=== PATIENT | male | born 2000 | race African-American/Black ===

== ENCOUNTER 2021-10-06 22:21 | Inpatient (IN) | payer BC, SELFPAY ==
[~2021-10-06 22:21] MED LIST: Iopamidol 370 76% 100 ML VIAL ONE
[2021-10-06] MEDS ORDERED: CEFAZOLIN 1 GM VIAL ONE (22:27)
[2021-10-06] MEDS ORDERED: Boostrix 0.5 ML (Tdap) VIAL ONE (22:27)
[2021-10-06 22:35] LABS: Hemoglobin 13.1 g/dL (14.0-18.0); Mean Corpuscular HGB CONC 30.8 g/dL (32.0-36.0); Mean Corpuscular Hemoglobin 29.2 pg (25.0-35.0); Mean Corpuscular Volume 94.9 fL (78.0-98.0); Mean Platelet Volume 8.5 fL (7.4-10.4); Platelet Count 224 thou/uL (130-400); RBC Distribution Width 12.3 % (11.5-14.5); Red Blood Cell (RBC) Count 4.47 mill/uL (4.00-5.20); White Blood Cell (WBC) Count 12.3 thou/uL (4.8-10.8)
[2021-10-06] MEDS ORDERED: Phenylephrine 10 MG/ML VIAL ONE (22:47)
[2021-10-06] MEDS ORDERED: Sodium Bicarb 50 MEQ/50 ML Abboject 8.4% SYRINGE ONE (22:47)
[2021-10-06] MEDS ORDERED: Calcium Chloride 1 GM/10 ML Abboject SYRINGE ONE ×2 (22:47→23:20)
[2021-10-06] MEDS ORDERED: Norepinephrine 4 MG/4 ML VIAL ONE (22:47)
[2021-10-06 22:48] LABS: Band 1 % (5-11); Eosinophils 2 % (0-10); INR-International Normal Ratio 1.4; Lymphocytes 51 % (28-48); MDiff Complete? YES; Monocytes 7 % (0-4); Neutrophil 30 % (31-61); PTT 34.4 sec (22.9-36.1); Platelet Morphology Comment Appears Adequate; Prothrombin Time 17.5 sec (12.0-14.7); RBC Morphology Normal; Reactive Lymphocytes 9 % (0-10)
[2021-10-06 22:54] LABS: ALT (SGPT) 24 U/L (8-55); AST (SGOT) 29 U/L (5-34); Albumin 3.8 g/dL (3.5-5.0); Alkaline Phosphatase 51 U/L (50-130); BUN (Urea Nitrogen) 13 mg/dL (8.9-20.6); Bilirubin, Total 0.4 mg/dL (0.2-1.2); Calc. Creatinine Clearance 0 mL/min (70-130); Calcium 8.9 mg/dL (7.8-10.44); Chloride 103 mmol/L (98-107); Globulin 2.9 g/dL (2.4-3.5); Glucose 216 mg/dL (70-105); Protein, Total 6.7 g/dL (6.0-8.3); Sodium 140 mmol/L (136-145)
[2021-10-06] MEDS ORDERED: Piperacillin/Tazobactam 3.375 GM VIAL ONE (23:04)
[2021-10-06 23:06] LABS: Carbon Dioxide Less than 8 mmol/L (22-29)
[2021-10-06] MEDS ORDERED: Fentanyl 100 MCG/2 ML VIAL ONE (23:18)
[2021-10-06] MEDS ORDERED: HYDROmorphone 0.5 MG/0.5 ML SYRINGE ONE (23:18)
[2021-10-06] MEDS ORDERED: PROPOFOL 200 MG/20 ML VIAL ONE (23:20)
[2021-10-06] MEDS ORDERED: Ondansetron PF 4 MG/2 ML Vial ONE (23:20)
[2021-10-06] MEDS ORDERED: Dexamethasone 20 MG/5 ML VIAL ONE (23:20)
[2021-10-06] MEDS ORDERED: PHENYLEPHRINE-NS 100 MCG/ML 10 ML SYRINGE ONE (23:20)
[2021-10-06] MEDS ORDERED: Rocuronium Bromide 10 MG/ML (10ML VIAL) ONE (23:20)
[2021-10-06] MEDS ORDERED: Glycopyrrolate 0.2 MG/ML 5 ML SYRINGE ONE (23:20)
[2021-10-06] MEDS ORDERED: Succinylcholine 200 MG/10 ml SYRINGE FS ONE (23:20)
[2021-10-06] MEDS ORDERED: Lidocaine 1% PF 5 ML VIAL ONE (23:20)
[2021-10-06 23:21] LABS: Alcohol 135 mg/dL (Less than 10); Magnesium 2.3 mg/dL (1.7-2.2); Phosphorus 4.8 mg/dL (2.3-4.7)
[2021-10-06 23:57] LABS: SARS-CoV-2 NAA Rapid Test Not Detected (NotDetected)
[2021-10-07] MEDS ORDERED: Zolpidem Tartrate 5 MG TAB PO PRN (00:57)
[2021-10-07] MEDS ORDERED: Promethazine HCl 25 MG/ML VIAL IVPB PRN (00:57)
[2021-10-07] MEDS ORDERED: PACU-Morphine 4MG/ML VIAL SLOW IVP PRN (00:57)
[2021-10-07] MEDS ORDERED: Naloxone HCl 0.4 mg/ml Vial IV PRN (00:57)
[2021-10-07] MEDS ORDERED: Ondansetron HCl/PF 4 MG/2 ML Vial IVP PRN (00:57)
[2021-10-07] MEDS ORDERED: HYDROmorphone 10 mg/100 ml CADD IVPB PRN (00:57)
[2021-10-07] MEDS ORDERED: diphenhydrAMINE 50 MG/ML VIAL IM PRN (00:57)
[2021-10-07] MEDS ORDERED: diphenhydrAMINE 25 MG CAP PO PRN (00:57)
[2021-10-07] MEDS ORDERED: diphenhydrAMINE 50 MG/ML VIAL IVP PRN (00:57)
[2021-10-07] MEDS ORDERED: Ondansetron PF 4 MG/2 ML Vial IVP PRN (00:57)
[2021-10-07] MEDS ORDERED: Promethazine HCl 25 MG/ML VIAL IM PRN ×2 (00:57)
[2021-10-07] MEDS ORDERED: HYDROmorphone 2 MG/ML VIAL SLOW IVP PRN (00:57)
[2021-10-07] MEDS ORDERED: Dextrose 50% Abboject 50 ML SYRINGE SLOW IVP PRN (00:58)
[2021-10-07] MEDS ORDERED: Morphine 4 MG/ML VIAL SLOW IVP PRN ×2 (00:58→19:41)
[2021-10-07] MEDS ORDERED: Dextrose 5% in Water 1,000 ML IV PRN (00:58)
[2021-10-07] MEDS ORDERED: hydrALAZINE 20 MG/ML VIAL SLOW IVP PRN (00:58)
[2021-10-07] MEDS ORDERED: Morphine 2 MG/ML VIAL SLOW IVP PRN (00:58)
[2021-10-07] MEDS ORDERED: Sodium Chloride 0.9% 1,000 ML IV SCH (01:00)
[2021-10-07] MEDS ORDERED: Communication Order-Pharmacy FS SCH (01:00)
[2021-10-07 01:47] LABS: Hemoglobin 14.5 g/dL (14.0-18.0); Mean Corpuscular HGB CONC 32.9 g/dL (32.0-36.0); Mean Corpuscular Hemoglobin 29.8 pg (25.0-35.0); Mean Corpuscular Volume 90.6 fL (78.0-98.0); Mean Platelet Volume 8.3 fL (7.4-10.4); Platelet Count 187 thou/uL (130-400); RBC Distribution Width 13.3 % (11.5-14.5); Red Blood Cell (RBC) Count 4.84 mill/uL (4.00-5.20); White Blood Cell (WBC) Count 27.5 thou/uL (4.8-10.8)
[2021-10-07 02:01] LABS: Band 10 % (5-11); Eosinophils 1 % (0-10); Lymphocytes 11 % (28-48); MDiff Complete? YES; Monocytes 13 % (0-4); Neutrophil 65 % (31-61); Platelet Morphology Comment Appears Adequate; RBC Morphology Normal
[2021-10-07 02:08] LABS: Anion Gap 16 mmol/L (10-20); BUN (Urea Nitrogen) 11 mg/dL (8.9-20.6); Calc. Creatinine Clearance 117 mL/min (70-130); Calcium 8.3 mg/dL (7.8-10.44); Carbon Dioxide 19 mmol/L (22-29); Chloride 108 mmol/L (98-107); Glucose 173 mg/dL (70-105); Magnesium 2.3 mg/dL (1.7-2.2); Phosphorus 2.5 mg/dL (2.3-4.7); Potassium 3.7 mmol/L (3.5-5.1); Sodium 139 mmol/L (136-145)
[2021-10-07 02:10] LABS: Lactic Acid 7.9 mmol/L (0.5-2.2)
[2021-10-07] MEDS: Potassium Chloride 20 MEQ in Lactated Ringer's 1,000 ML IV SCH ×4 (02:32→21:44)
[2021-10-07] MEDS ORDERED: Potassium Phosphate 15 MMOL in Sodium Chloride 0.9% 250 ML 250 ML IVPB SCH (03:00)
[2021-10-07] MEDS: Piperacillin/Tazobactam 3.375 GM in Sodium Chloride 0.9% 100 ML IVPB SCH ×3 (03:05→20:47)
[2021-10-07 03:09] LABS: Bacteria/HPF 1+ HPF (None Seen); Bilirubin Negative (Negative); Blood, Urine 3+ (Negative); Clarity Turbid (Clear); Glucose, Urine (Dipstick) 50 mg/dL (Negative); Ketone, Urine Negative (Negative); Leukocyte Negative Leu/uL (Negative); Nitrite Negative (Negative); Protein, Urine (Dipstick) Negative (Neg-Trace); RBC/HPF Greater than 50 HPF (0-3); Specific Gravity, Urine 1.022 (1.002-1.036); Squamous Epithelial None Seen HPF (0-3); Urobilinogen Normal mg/dL (Less than 2); WBC/HPF 21-50 HPF (0-3)
[2021-10-07 03:59] LABS: Amphetamine Not Detected (NotDetected); Barbiturates Screen Not Detected (NotDetected); Benzodiazepine Screen Not Detected (NotDetected); Cocaine Metabolite Screen Not Detected (NotDetected); Methadone Not Detected (NotDetected); Methamphetamine Not Detected (NotDetected); Opiate Screen Detected (NotDetected); Oxycodone Screen Not Detected (NotDetected); Phencyclidine (PCP) Not Detected (NotDetected); THC/Cannabinoid Screen Detected (NotDetected); Tricyclic Screen Not Detected (NotDetected)
[2021-10-07] MEDS: Famotidine/PF 20 mg/2ml Vial SLOW IVP SCH ×2 (08:16→20:50)
[2021-10-07 08:46] LABS: Lactic Acid 3.9 mmol/L (0.5-2.2)
[2021-10-07] MEDS ORDERED: Ondansetron PF 4 MG/2 ML Vial IVP SCH (09:15)
[2021-10-07] MEDS: traMADol HCl 50 MG TAB PO SCH ×3 (09:26→21:01)
[2021-10-07] MEDS: Scopolamine 1.5 mg/72 hour Patch TD SCH (09:27)
[2021-10-07] MEDS: Cyclobenzaprine 10 MG TAB PO PRN (11:41)
[2021-10-07] MEDS: cloNIDine 0.2 MG TAB PO SCH ×2 (11:41→17:32)
[2021-10-07] MEDS: Ketorolac Tromethamine 30 MG/ML VIAL IVP SCH ×2 (11:41→17:34)
[2021-10-07] MEDS: Acetaminophen 500 MG TAB PO SCH ×2 (11:42→17:32)
[2021-10-07] MEDS: Gabapentin 300 MG CAP PO SCH ×2 (14:58→21:01)
[2021-10-08] MEDS: cloNIDine 0.2 MG TAB PO SCH (00:07)
[2021-10-08] MEDS: Ketorolac Tromethamine 30 MG/ML VIAL IVP SCH ×4 (00:07→18:40)
[2021-10-08] MEDS: Acetaminophen 500 MG TAB PO SCH ×4 (00:08→18:39)
[2021-10-08] MEDS: traMADol HCl 50 MG TAB PO SCH ×4 (04:26→21:43)
[2021-10-08] MEDS: Piperacillin/Tazobactam 3.375 GM in Sodium Chloride 0.9% 100 ML IVPB SCH ×3 (04:27→20:48)
[2021-10-08] MEDS: Potassium Chloride 20 MEQ in Lactated Ringer's 1,000 ML IV SCH (05:49)
[2021-10-08] MEDS: Cyclobenzaprine 10 MG TAB PO PRN (05:52)
[2021-10-08] MEDS ORDERED: cloNIDine 0.2 MG TAB PO SCH (06:00)
[2021-10-08 06:59] LABS: #Lymphocytes 1.6 thou/uL (1.20-3.40); #Monocytes 1.5 thou/uL (0.11-0.59); #Neutrophils 18.4 thou/uL (1.40-6.50); %Eosinophils 0.1 % (0.0-10.0); %Lymphocytes 7.6 % (28.0-48.0); %Neutrophils 85.3 % (31.0-61.0); Hemoglobin 10.2 g/dL (14.0-18.0); Mean Corpuscular Hemoglobin 29.4 pg (25.0-35.0); Mean Platelet Volume 8.5 fL (7.4-10.4); Platelet Count 116 thou/uL (130-400); Red Blood Cell (RBC) Count 3.48 mill/uL (4.00-5.20); White Blood Cell (WBC) Count 21.6 thou/uL (4.8-10.8)
[2021-10-08 07:06] LABS: ALT (SGPT) 17 U/L (8-55); AST (SGOT) 24 U/L (5-34); Albumin 2.9 g/dL (3.5-5.0); Alkaline Phosphatase 29 U/L (50-130); Anion Gap 10 mmol/L (10-20); BUN (Urea Nitrogen) 15 mg/dL (8.9-20.6); Bilirubin, Total 0.8 mg/dL (0.2-1.2); Calc. Creatinine Clearance 109 mL/min (70-130); Calcium 8.3 mg/dL (7.8-10.44); Carbon Dioxide 26 mmol/L (22-29); Chloride 102 mmol/L (98-107); Globulin 2.3 g/dL (2.4-3.5); Glucose 85 mg/dL (70-105); Magnesium 1.6 mg/dL (1.7-2.2); Potassium 4.2 mmol/L (3.5-5.1); Protein, Total 5.2 g/dL (6.0-8.3); Sodium 134 mmol/L (136-145)
[2021-10-08 07:07] LABS: Phosphorus 2.9 mg/dL (2.3-4.7)
[2021-10-08] MEDS: Gabapentin 300 MG CAP PO SCH ×3 (08:22→21:44)
[2021-10-08] MEDS: Famotidine/PF 20 mg/2ml Vial SLOW IVP SCH ×2 (08:24→20:48)
[2021-10-08] MEDS ORDERED: Magnesium Sulfate 3 GM in Sodium Chloride 0.9% 100 ML IVPB SCH (09:00)
[2021-10-08] MEDS: cloNIDine 0.1 MG TAB PO SCH ×2 (14:21→18:39)
[2021-10-08] MEDS: diphenhydrAMINE 50 MG CAP PO PRN (21:46)
[2021-10-09] MEDS: cloNIDine 0.1 MG TAB PO SCH ×3 (00:49→13:25)
[2021-10-09] MEDS: Acetaminophen 500 MG TAB PO SCH ×4 (00:54→18:37)
[2021-10-09] MEDS: Cyclobenzaprine 10 MG TAB PO PRN (00:55)
[2021-10-09] MEDS: Ketorolac Tromethamine 30 MG/ML VIAL IVP SCH ×4 (00:55→18:37)
[2021-10-09] MEDS: traMADol HCl 50 MG TAB PO SCH ×4 (04:27→20:40)
[2021-10-09] MEDS: Piperacillin/Tazobactam 3.375 GM in Sodium Chloride 0.9% 100 ML IVPB SCH ×3 (04:28→20:40)
[2021-10-09] MEDS: Famotidine/PF 20 mg/2ml Vial SLOW IVP SCH ×2 (08:49→20:41)
[2021-10-09] MEDS: Gabapentin 300 MG CAP PO SCH ×3 (08:50→20:41)
[2021-10-09] MEDS ORDERED: Melatonin 3 MG TAB PO PRN (16:56)
[2021-10-09] MEDS: diphenhydrAMINE 50 MG CAP PO PRN (20:41)
[2021-10-10] MEDS: Ketorolac Tromethamine 30 MG/ML VIAL IVP SCH ×2 (00:57→06:10)
[2021-10-10] MEDS: Acetaminophen 500 MG TAB PO SCH ×4 (00:59→17:19)
[2021-10-10] MEDS: Piperacillin/Tazobactam 3.375 GM in Sodium Chloride 0.9% 100 ML IVPB SCH ×2 (03:46→11:43)
[2021-10-10] MEDS: traMADol HCl 50 MG TAB PO SCH ×4 (03:46→21:45)
[2021-10-10 06:54] LABS: Hemoglobin 9.1 g/dL (14.0-18.0); Mean Corpuscular HGB CONC 32.3 g/dL (32.0-36.0); Mean Corpuscular Hemoglobin 29.2 pg (25.0-35.0); Mean Corpuscular Volume 90.4 fL (78.0-98.0); Mean Platelet Volume 8.2 fL (7.4-10.4); Platelet Count 128 thou/uL (130-400); RBC Distribution Width 12.6 % (11.5-14.5); Red Blood Cell (RBC) Count 3.13 mill/uL (4.00-5.20); White Blood Cell (WBC) Count 11.3 thou/uL (4.8-10.8)
[2021-10-10 07:09] LABS: Anion Gap 15 mmol/L (10-20); BUN (Urea Nitrogen) 12 mg/dL (8.9-20.6); Calc. Creatinine Clearance 116 mL/min (70-130); Calcium 8.6 mg/dL (7.8-10.44); Carbon Dioxide 24 mmol/L (22-29); Chloride 101 mmol/L (98-107); Glucose 61 mg/dL (70-105); Magnesium 1.9 mg/dL (1.7-2.2); Phosphorus 3.3 mg/dL (2.3-4.7); Potassium 3.7 mmol/L (3.5-5.1); Sodium 136 mmol/L (136-145)
[2021-10-10 07:11] LABS: Band 5 % (5-11); Lymphocytes 7 % (28-48); MDiff Complete? YES; Monocytes 1 % (0-4); Neutrophil 84 % (31-61); Platelet Morphology Comment Appears Decreased; RBC Morphology Normal; Reactive Lymphocytes 3 % (0-10)
[2021-10-10] MEDS: Scopolamine 1.5 mg/72 hour Patch TD SCH (09:02)
[2021-10-10] MEDS: Gabapentin 300 MG CAP PO SCH ×3 (09:03→21:46)
[2021-10-10] MEDS: Famotidine/PF 20 mg/2ml Vial SLOW IVP SCH ×2 (09:04→21:47)
[2021-10-10] MEDS: Saccharomyces boulardii 250 MG CAP PO SCH (09:04)
[2021-10-10] MEDS: Cyclobenzaprine 10 MG TAB PO PRN ×2 (11:43→18:29)
[2021-10-10] MEDS ORDERED: Polyethylene Glycol 3350 17 GM Packet PO SCH (12:30)
[2021-10-10] MEDS: Ibuprofen 200 MG TAB PO PRN (18:29)
[2021-10-10] MEDS: Senokot S 8.6-50 MG TAB PO SCH (21:45)
[2021-10-11] MEDS: Acetaminophen 500 MG TAB PO SCH ×4 (00:41→17:05)
[2021-10-11] MEDS: traMADol HCl 50 MG TAB PO SCH ×4 (03:09→22:43)
[2021-10-11] MEDS: Gabapentin 300 MG CAP PO SCH ×3 (09:13→22:43)
[2021-10-11] MEDS: Famotidine/PF 20 mg/2ml Vial SLOW IVP SCH ×2 (09:13→22:42)
[2021-10-11] MEDS: Senokot S 8.6-50 MG TAB PO SCH ×2 (09:14→22:43)
[2021-10-11] MEDS: Saccharomyces boulardii 250 MG CAP PO SCH (09:14)
[2021-10-11] MEDS: Polyethylene Glycol 3350 17 GM Packet PO SCH (09:14)
[2021-10-11 10:13] LABS: #Eosinphils 0.2 thou/uL (0.0-0.7); #Monocytes 0.9 thou/uL (0.11-0.59); #Neutrophils 12.1 thou/uL (1.40-6.50); %Basophils 0.2 % (0.0-1.0); %Eosinophils 1.6 % (0.0-10.0); %Lymphocytes 6.9 % (28.0-48.0); %Monocytes 6.1 % (0.0-4.0); %Neutrophils 85.2 % (31.0-61.0); Hemoglobin 9.4 g/dL (14.0-18.0); Mean Corpuscular HGB CONC 31.4 g/dL (32.0-36.0); Mean Corpuscular Hemoglobin 28.3 pg (25.0-35.0); Mean Corpuscular Volume 90.1 fL (78.0-98.0); Mean Platelet Volume 7.1 fL (7.4-10.4); Platelet Count 183 thou/uL (130-400); RBC Distribution Width 12.4 % (11.5-14.5); Red Blood Cell (RBC) Count 3.31 mill/uL (4.00-5.20); White Blood Cell (WBC) Count 14.2 thou/uL (4.8-10.8)
[2021-10-11 11:42] VITALS: BMI 23.7
[2021-10-11] MEDS: Cyclobenzaprine 10 MG TAB PO PRN (17:06)
[2021-10-11] MEDS: Ibuprofen 200 MG TAB PO PRN (17:06)
[2021-10-12] MEDS: diphenhydrAMINE 50 MG CAP PO PRN (00:23)
[2021-10-12] MEDS: Acetaminophen 500 MG TAB PO SCH ×2 (00:23→06:41)
[2021-10-12] MEDS: Senokot S 8.6-50 MG TAB PO SCH ×2 (00:27→08:31)
[2021-10-12] MEDS: traMADol HCl 50 MG TAB PO SCH ×2 (03:29→08:31)
[2021-10-12 06:43] LABS: #Basophils 0.1 thou/uL (0.0-0.2); #Eosinphils 0.4 thou/uL (0.0-0.7); #Monocytes 1.3 thou/uL (0.11-0.59); #Neutrophils 10.8 thou/uL (1.40-6.50); %Basophils 0.5 % (0.0-1.0); %Eosinophils 2.9 % (0.0-10.0); %Lymphocytes 7.5 % (28.0-48.0); %Monocytes 9.5 % (0.0-4.0); %Neutrophils 79.6 % (31.0-61.0); Hemoglobin 9.4 g/dL (14.0-18.0); Mean Corpuscular HGB CONC 33.6 g/dL (32.0-36.0); Mean Corpuscular Hemoglobin 29.9 pg (25.0-35.0); Mean Corpuscular Volume 89.2 fL (78.0-98.0); Mean Platelet Volume 6.9 fL (7.4-10.4); Platelet Count 191 thou/uL (130-400); RBC Distribution Width 12.5 % (11.5-14.5); Red Blood Cell (RBC) Count 3.15 mill/uL (4.00-5.20); White Blood Cell (WBC) Count 13.6 thou/uL (4.8-10.8)
[2021-10-12] MEDS: Cyclobenzaprine 10 MG TAB PO PRN (06:44)
[2021-10-12 07:04] LABS: Anion Gap 15 mmol/L (10-20); BUN (Urea Nitrogen) 11 mg/dL (8.9-20.6); Calc. Creatinine Clearance 134 mL/min (70-130); Calcium 9.1 mg/dL (7.8-10.44); Carbon Dioxide 24 mmol/L (22-29); Chloride 100 mmol/L (98-107); Magnesium 1.8 mg/dL (1.7-2.2); Phosphorus 3.6 mg/dL (2.3-4.7); Sodium 135 mmol/L (136-145)
[2021-10-12 07:12] LABS: Glucose 54 mg/dL (70-105)
[2021-10-12] MEDS: Ibuprofen 200 MG TAB PO PRN (08:32)
[2021-10-12] MEDS: Gabapentin 300 MG CAP PO SCH (08:32)
[2021-10-12] MEDS: Saccharomyces boulardii 250 MG CAP PO SCH (08:33)
[2021-10-12] MEDS: Famotidine/PF 20 mg/2ml Vial SLOW IVP SCH (08:33)
[2021-10-12] MEDS: Polyethylene Glycol 3350 17 GM Packet PO SCH (08:33)
[2021-10-12 12:20] VITALS: TEMP 98.4
[2021-10-12 12:21] VITALS: BP 126/89
[2021-10-15 11:43] LABS: Actual Bicarbonate (HCO3a) 18.4 mEq/L (22-28); Analyzer IN Cardio OR; Base Excess (BEa) -6.1 mEq/L (-2.0 to +3.0); CO2 Tension 33.1 mmHg (35.0-45.0); Calcium, Ionized (arterial) 1.29 mmol/L (1.12-1.30); Carboxyhemoglobin (COHb) 0.2 gm% (0.0-3.0); Hemoglobin (Hb) 11.5 g/dL (11.4-15.4); Potassium - ABG Lab 3.82 mmol/L (3.70-5.30); pH, Arterial 7.36 (7.35-7.45)
[2021-10-15 11:44] LABS: Puncture Site Arterial Line
== END 2021-10-12 14:32 | disposition home or self-care (01) | DRG 981 ==
LOC: ERS 22:21 → SDC/OP 23:15 → CCU 23:59 → EEVIPCON 23:59 → SURG A 10-07 16:41
PROVIDERS: ADMIT Specialist; ATTEND Specialist
PROC: 0DQM0ZZ Repair Descending Colon, Open Approach (ICD-10-PCS; principal; 2021-10-07)
PROC: 0W9J0ZZ Drainage of Pelvic Cavity, Open Approach (ICD-10-PCS; 2021-10-07)
PROC: 30233N1 Transfusion of Nonautologous Red Blood Cells into Peripheral Vein, Percutaneous Approach (ICD-10-PCS; 2021-10-07)
DX: S36.532A Laceration of descending [left] colon, initial encounter (principal); T79.4XXA Traumatic shock, initial encounter; S37.032A Laceration of left kidney, unspecified degree, initial encounter; E87.2 Acidosis; N17.9 Acute kidney failure, unspecified; D62 Acute posthemorrhagic anemia; K62.5 Hemorrhage of anus and rectum; Z20.822 Contact with and (suspected) exposure to COVID-19; S31.119A Laceration without foreign body of abdominal wall, unspecified quadrant without penetration into peritoneal cavity, initial encounter; F10.129 Alcohol abuse with intoxication, unspecified; W26.9XXA Contact with unspecified sharp object(s), initial encounter; S31.821A Laceration without foreign body of left buttock, initial encounter; E87.6 Hypokalemia; R31.9 Hematuria, unspecified; Z88.2 Allergy status to sulfonamides
CPT/HCPCS: 36415; 36416; 36430; 71045; 71260; 74177; 80048; 80053; 80306; 80307; 81003; 81015; 83605; 83735; 84100; 85007; 85025; 85027; 85610; 85730; 86850; 86900; 86901; 90471; 90715; 94640; 96374; 96375; C1776; G0390; J0690; J1100; J1170; J1885; J2270; J2370; J2405; J2543; J2704; J3010; J3475; J3480; J3490; J7050; J7120; J7620; P9016; Q9967; S0028; U0002

== ENCOUNTER 2021-10-13 03:37 | Inpatient (IN) | payer BC ==
[2021-10-13] MEDS ORDERED: Ondansetron PF 4 MG/2 ML Vial ONE (04:29)
[2021-10-13] MEDS ORDERED: Morphine 4 MG/ML VIAL ONE (04:29)
[2021-10-13 04:35] LABS: Bilirubin Negative (Negative); Blood, Urine Moderate (Negative); Glucose, Urine (Dipstick) Negative (Negative); Ketone, Urine 40 mg/dL (Negative); Leukocyte Negative (Negative); Nitrite Negative (Negative); Protein, Urine (Dipstick) > or equal to 300 mg/dL (Neg-Trace); Specific Gravity, Urine 1.025 (1.005-1.030); Urobilinogen 0.2 mg/dL (Less than 2)
[2021-10-13 04:35] LABS: #Eosinphils 0.4 thou/uL (0.0-0.7); #Lymphocytes 1.8 thou/uL (1.20-3.40); #Monocytes 1.4 thou/uL (0.11-0.59); #Neutrophils 8.8 thou/uL (1.40-6.50); %Basophils 0.3 % (0.0-1.0); %Eosinophils 3.2 % (0.0-10.0); %Lymphocytes 14.1 % (28.0-48.0); %Monocytes 11.5 % (0.0-4.0); %Neutrophils 70.9 % (31.0-61.0); Hemoglobin 10.2 g/dL (14.0-18.0); Mean Corpuscular HGB CONC 33.8 g/dL (32.0-36.0); Mean Corpuscular Hemoglobin 29.9 pg (25.0-35.0); Mean Corpuscular Volume 88.4 fL (78.0-98.0); Mean Platelet Volume 6.9 fL (7.4-10.4); Platelet Count 249 thou/uL (130-400); RBC Distribution Width 12.7 % (11.5-14.5); White Blood Cell (WBC) Count 12.4 thou/uL (4.8-10.8)
[2021-10-13 04:36] LABS: Clarity Bloody (Clear); RBC/HPF Greater than 50 HPF (0-3)
[2021-10-13 04:37] LABS: WBC/HPF 0-3 HPF (0-3)
[2021-10-13] MEDS ORDERED: Ondansetron PF 4 MG/2 ML Vial IVP PRN ×2 (04:37→14:37)
[2021-10-13] MEDS ORDERED: traMADol HCl 50 MG TAB PO PRN (04:41)
[2021-10-13] MEDS ORDERED: Sodium Chloride 0.9% 1,000 ML IV SCH (04:45)
[2021-10-13 04:53] LABS: ALT (SGPT) 36 U/L (8-55); AST (SGOT) 45 U/L (5-34); Albumin 3.6 g/dL (3.5-5.0); Alkaline Phosphatase 50 U/L (50-130); Anion Gap 15 mmol/L (10-20); BUN (Urea Nitrogen) 10 mg/dL (8.9-20.6); Bilirubin, Total 0.6 mg/dL (0.2-1.2); Calc. Creatinine Clearance 0 mL/min (70-130); Calcium 9.3 mg/dL (7.8-10.44); Carbon Dioxide 25 mmol/L (22-29); Chloride 99 mmol/L (98-107); Globulin 3.7 g/dL (2.4-3.5); Glucose 87 mg/dL (70-105); Potassium 3.5 mmol/L (3.5-5.1); Protein, Total 7.3 g/dL (6.0-8.3); Sodium 135 mmol/L (136-145)
[2021-10-13 04:58] LABS: INR-International Normal Ratio 1.1; PTT 38.4 sec (22.9-36.1)
[2021-10-13 05:45] LABS: Magnesium 1.8 mg/dL (1.7-2.2); Phosphorus 3.5 mg/dL (2.3-4.7)
[2021-10-13] MEDS ORDERED: Acetaminophen 325 MG Suppository ONE (10:09)
[2021-10-13] MEDS ORDERED: Acetaminophen 325 MG TAB ONE (10:09)
[2021-10-13] MEDS: Acetaminophen 325 MG TAB PO SCH ×3 (11:00→17:48)
[2021-10-13] MEDS: Gabapentin 300 MG CAP PO SCH ×2 (11:00→14:49)
[2021-10-13] MEDS ORDERED: Acetaminophen/Codeine 30-300mg Tablet PO PRN ×2 (14:35)
[2021-10-13] MEDS: Cyclobenzaprine 10 MG TAB PO PRN (14:49)
[2021-10-13 16:19] LABS: Anion Gap 17 mmol/L (10-20); BUN (Urea Nitrogen) 10 mg/dL (8.9-20.6); Calc. Creatinine Clearance 0 mL/min (70-130); Calcium 9.1 mg/dL (7.8-10.44); Carbon Dioxide 22 mmol/L (22-29); Chloride 100 mmol/L (98-107); Glucose 62 mg/dL (70-105); Magnesium 1.7 mg/dL (1.7-2.2); Potassium 3.8 mmol/L (3.5-5.1); Sodium 135 mmol/L (136-145)
[2021-10-13 16:26] LABS: Phosphorus 3.2 mg/dL (2.3-4.7)
[2021-10-13] MEDS ORDERED: Morphine 4 MG/ML VIAL SLOW IVP PRN (17:16)
[2021-10-13] MEDS: Sodium Chloride 0.9% 1,000 ML IV SCH (17:34)
[2021-10-13] MEDS: Acetaminophen/Codeine 30-300mg Tablet PO SCH (17:43)
[2021-10-13] MEDS ORDERED: Acetaminophen 500 MG TAB PO SCH (18:00)
[2021-10-13] MEDS ORDERED: B & O 30 MG SUPP PR PRN (19:26)
[2021-10-13] MEDS ORDERED: ceFAZolin 2 GM/Dextrose 50 ML 2 GM in Premix Bag 1 BAG IVPB SCH (19:30)
[2021-10-13] MEDS ORDERED: Iothalamate Meglumine 60% 50 ML VIAL FS ONE ×3 (20:07→21:12)
[2021-10-13 20:14] LABS: Hemoglobin 8.9 g/dL (14.0-18.0)
[2021-10-13] MEDS ORDERED: Fentanyl 250 MCG/5 ML VIAL ONE (20:15)
[2021-10-13] MEDS ORDERED: Rocuronium Bromide 10 MG/ML (10ML VIAL) ONE (20:32)
[2021-10-13] MEDS ORDERED: Lidocaine 1% PF 5 ML VIAL ONE (20:32)
[2021-10-13] MEDS ORDERED: Succinylcholine 200 MG/10 ml SYRINGE FS ONE (20:32)
[2021-10-13] MEDS ORDERED: PROPOFOL 200 MG/20 ML VIAL ONE (20:32)
[2021-10-13] MEDS ORDERED: PHENYLEPHRINE-NS 100 MCG/ML 10 ML SYRINGE ONE (20:32)
[2021-10-13] MEDS ORDERED: Phenylephrine 10 MG/ML VIAL ONE (22:22)
[2021-10-14] MEDS ORDERED: Fentanyl 100 MCG/2 ML VIAL ONE ×4 (00:19→05:27)
[2021-10-14] MEDS ORDERED: Rocuronium Bromide 50 MG/5 ML VIAL ONE (01:26)
[2021-10-14] MEDS ORDERED: Phenylephrine 10 MG/ML VIAL ONE (01:50)
[2021-10-14] MEDS ORDERED: ceFAZolin 2 GM/Dextrose 50 ML IVPB ONE (02:01)
[2021-10-14] MEDS ORDERED: Ondansetron PF 4 MG/2 ML Vial ONE (02:48)
[2021-10-14] MEDS ORDERED: HYDROmorphone 2 MG/ML VIAL ONE (04:01)
[2021-10-14] MEDS ORDERED: fentaNYL Citrate/PF 2,000 MCG in Sodium Chloride 0.9% 60 ML IV PRN (04:06)
[2021-10-14] MEDS ORDERED: diphenhydrAMINE 50 MG/ML VIAL IVP PRN (04:06)
[2021-10-14] MEDS ORDERED: Promethazine HCl 25 MG/ML VIAL IM PRN ×2 (04:06→04:07)
[2021-10-14] MEDS ORDERED: Ondansetron PF 4 MG/2 ML Vial IVP PRN (04:06)
[2021-10-14] MEDS ORDERED: Naloxone HCl 0.4 mg/ml Vial IV PRN (04:06)
[2021-10-14] MEDS ORDERED: diphenhydrAMINE 50 MG/ML VIAL IM PRN (04:06)
[2021-10-14] MEDS ORDERED: diphenhydrAMINE 25 MG CAP PO PRN (04:06)
[2021-10-14] MEDS ORDERED: Ondansetron HCl/PF 4 MG/2 ML Vial IVP PRN (04:07)
[2021-10-14] MEDS ORDERED: Promethazine HCl 25 MG/ML VIAL IVPB PRN (04:07)
[2021-10-14 04:08] LABS: Band 11 % (5-11); Hemoglobin 6.8 g/dL (14.0-18.0); Lymphocytes 5 % (28-48); MDiff Complete? YES; Mean Corpuscular HGB CONC 33.3 g/dL (32.0-36.0); Mean Corpuscular Hemoglobin 30.3 pg (25.0-35.0); Mean Corpuscular Volume 90.9 fL (78.0-98.0); Mean Platelet Volume 6.8 fL (7.4-10.4); Monocytes 4 % (0-4); Myelocyte 3 % (0-0); Neutrophil 77 % (31-61); Platelet Count 254 thou/uL (130-400); Platelet Morphology Comment Appears Adequate; Polychromasia SLIGHT = 2-3 cells (100X) (0-2/hpf); RBC Distribution Width 12.8 % (11.5-14.5); Red Blood Cell (RBC) Count 2.24 mill/uL (4.00-5.20); Schistocytes SLIGHT = 2-5 cells (100X) (0-1/hpf); White Blood Cell (WBC) Count 16.9 thou/uL (4.8-10.8)
[2021-10-14] MEDS ORDERED: Communication Order-Pharmacy FS SCH (04:15)
[2021-10-14 04:16] LABS: Anion Gap 18 mmol/L (10-20); BUN (Urea Nitrogen) 12 mg/dL (8.9-20.6); Calc. Creatinine Clearance 42 mL/min (70-130); Calcium 7.7 mg/dL (7.8-10.44); Carbon Dioxide 18 mmol/L (22-29); Chloride 105 mmol/L (98-107); Glucose 147 mg/dL (70-105); Magnesium 1.6 mg/dL (1.7-2.2); Phosphorus 5.1 mg/dL (2.3-4.7); Potassium 5.9 mmol/L (3.5-5.1); Sodium 135 mmol/L (136-145)
[2021-10-14] MEDS ORDERED: Oxybutynin 5 MG TAB PO PRN (05:36)
[2021-10-14] MEDS: Ascorbic Acid 500 mg Chewable Tablet PO SCH ×3 (06:04→20:00)
[2021-10-14] MEDS: Gabapentin 300 MG CAP PO SCH ×4 (06:04→19:59)
[2021-10-14] MEDS: Acetaminophen 325 MG TAB PO SCH (06:05)
[2021-10-14] MEDS: Sodium Chloride 0.9% 1,000 ML IV SCH ×4 (06:05→20:01)
[2021-10-14] MEDS ORDERED: Magnesium 2 GM/50 ML 2 GM in Premix Bag 1 BAG IVPB SCH (07:45)
[2021-10-14] MEDS: Ferrous Sulfate 325 MG TAB PO SCH ×2 (09:17→18:29)
[2021-10-14 10:11] LABS: Hemoglobin 7.3 g/dL (14.0-18.0); Platelet Count 245 thou/uL (130-400)
[2021-10-14 10:41] LABS: Anion Gap 13 mmol/L (10-20); BUN (Urea Nitrogen) 12 mg/dL (8.9-20.6); Calc. Creatinine Clearance 40 mL/min (70-130); Calcium 7.9 mg/dL (7.8-10.44); Carbon Dioxide 21 mmol/L (22-29); Chloride 106 mmol/L (98-107); Glucose 124 mg/dL (70-105); Magnesium 1.6 mg/dL (1.7-2.2); Phosphorus 3.1 mg/dL (2.3-4.7); Potassium 4.7 mmol/L (3.5-5.1); Sodium 135 mmol/L (136-145)
[2021-10-14] MEDS: Acetaminophen/Codeine 30-300mg Tablet PO SCH ×2 (10:45→10:46)
[2021-10-14] MEDS ORDERED: Acetaminophen 325 MG TAB PO SCH (12:00)
[2021-10-14] MEDS: Acetaminophen 500 MG TAB PO SCH (18:21)
[2021-10-14 18:41] LABS: Hemoglobin 7.8 g/dL (14.0-18.0); Mean Corpuscular HGB CONC 34.1 g/dL (32.0-36.0); Mean Corpuscular Hemoglobin 30.5 pg (25.0-35.0); Mean Corpuscular Volume 89.7 fL (78.0-98.0); Platelet Count 226 thou/uL (130-400); RBC Distribution Width 12.7 % (11.5-14.5); Red Blood Cell (RBC) Count 2.55 mill/uL (4.00-5.20); White Blood Cell (WBC) Count 16.1 thou/uL (4.8-10.8)
[2021-10-14 18:44] LABS: Band 3 % (5-11); Eosinophils 1 % (0-10); Lymphocytes 10 % (28-48); MDiff Complete? YES; Monocytes 9 % (0-4); Neutrophil 77 % (31-61); Platelet Morphology Comment Appears Adequate; Polychromasia SLIGHT = 2-3 cells (100X) (0-2/hpf)
[2021-10-14] MEDS: Zolpidem Tartrate 5 MG TAB PO PRN (20:00)
[2021-10-14] MEDS ORDERED: Magnesium Sulfate 4 GM in Sodium Chloride 0.9% 250 ML 250 ML IV SCH (20:15)
[2021-10-14] MEDS ORDERED: Sodium Chloride 0.9% 500 ML IV SCH (21:30)
[2021-10-15] MEDS: Acetaminophen 500 MG TAB PO SCH ×2 (00:12→06:10)
[2021-10-15] MEDS: Sodium Chloride 0.9% 1,000 ML IV SCH (06:10)
[2021-10-15 07:16] LABS: Hemoglobin 9.1 g/dL (14.0-18.0); Mean Corpuscular HGB CONC 34.3 g/dL (32.0-36.0); Mean Corpuscular Hemoglobin 30.5 pg (25.0-35.0); Mean Corpuscular Volume 88.8 fL (78.0-98.0); Mean Platelet Volume 6.1 fL (7.4-10.4); Platelet Count 261 thou/uL (130-400); RBC Distribution Width 12.6 % (11.5-14.5); Red Blood Cell (RBC) Count 2.98 mill/uL (4.00-5.20); White Blood Cell (WBC) Count 14.3 thou/uL (4.8-10.8)
[2021-10-15 07:33] LABS: Anion Gap 11 mmol/L (10-20); BUN (Urea Nitrogen) 8 mg/dL (8.9-20.6); Calc. Creatinine Clearance 47 mL/min (70-130); Calcium 7.9 mg/dL (7.8-10.44); Carbon Dioxide 25 mmol/L (22-29); Chloride 104 mmol/L (98-107); Glucose 94 mg/dL (70-105); Magnesium 2.5 mg/dL (1.7-2.2); Phosphorus 2.3 mg/dL (2.3-4.7); Potassium 3.9 mmol/L (3.5-5.1); Sodium 136 mmol/L (136-145)
[2021-10-15] MEDS ORDERED: traMADol HCl 50 MG TAB PO PRN (07:35)
[2021-10-15 07:51] LABS: Band 4 % (5-11); Eosinophils 1 % (0-10); Lymphocytes 9 % (28-48); MDiff Complete? YES; Monocytes 11 % (0-4); Neutrophil 74 % (31-61); Platelet Morphology Comment Appears Adequate; Polychromasia SLIGHT = 2-3 cells (100X) (0-2/hpf); Reactive Lymphocytes 1 % (0-10)
[2021-10-15] MEDS ORDERED: Ferrous Sulfate 325 MG TAB PO SCH (08:00)
[2021-10-15] MEDS: Gabapentin 300 MG CAP PO SCH ×3 (08:49→20:18)
[2021-10-15] MEDS: Ascorbic Acid 500 mg Chewable Tablet PO SCH ×2 (08:49→20:19)
[2021-10-15] MEDS: Ferrous Sulfate 325 MG TAB PO SCH ×2 (08:52→17:23)
[2021-10-15] MEDS ORDERED: Senokot S 8.6-50 MG TAB PO SCH (09:00)
[2021-10-15] MEDS ORDERED: Ascorbic Acid 500 mg Chewable Tablet PO SCH (09:00)
[2021-10-15] MEDS ORDERED: traMADol HCl 50 MG TAB PO SCH (12:00)
[2021-10-15] MEDS ORDERED: cloNIDine 0.2 MG TAB PO SCH (12:00)
[2021-10-15] MEDS: cloNIDine 0.1 MG TAB PO SCH ×3 (12:37→23:28)
[2021-10-15] MEDS: Acetaminophen 325 MG TAB PO SCH ×4 (12:38→23:27)
[2021-10-15] MEDS: Acetaminophen/Codeine 30-300mg Tablet PO SCH ×4 (12:38→23:28)
[2021-10-15 13:26] LABS: #Eosinphils 0.3 thou/uL (0.0-0.7); #Lymphocytes 1.8 thou/uL (1.20-3.40); #Monocytes 2.1 thou/uL (0.11-0.59); #Neutrophils 12.4 thou/uL (1.40-6.50); %Basophils 0.2 % (0.0-1.0); %Eosinophils 1.7 % (0.0-10.0); %Lymphocytes 10.9 % (28.0-48.0); %Monocytes 12.5 % (0.0-4.0); %Neutrophils 74.8 % (31.0-61.0); Hemoglobin 9.4 g/dL (14.0-18.0); Mean Corpuscular HGB CONC 33.7 g/dL (32.0-36.0); Mean Corpuscular Hemoglobin 30.4 pg (25.0-35.0); Mean Platelet Volume 6.3 fL (7.4-10.4); Platelet Count 315 thou/uL (130-400); RBC Distribution Width 12.6 % (11.5-14.5); White Blood Cell (WBC) Count 16.6 thou/uL (4.8-10.8)
[2021-10-15] MEDS: Senokot S 8.6-50 MG TAB PO SCH (20:18)
[2021-10-15] MEDS: Zolpidem Tartrate 5 MG TAB PO PRN (20:19)
[2021-10-16] MEDS: Acetaminophen/Codeine 30-300mg Tablet PO SCH ×3 (05:40→17:41)
[2021-10-16] MEDS: Acetaminophen 325 MG TAB PO SCH ×3 (05:40→17:24)
[2021-10-16] MEDS: cloNIDine 0.1 MG TAB PO SCH ×3 (05:41→17:28)
[2021-10-16 05:49] LABS: #Eosinphils 0.5 thou/uL (0.0-0.7); #Monocytes 1.6 thou/uL (0.11-0.59); #Neutrophils 8.6 thou/uL (1.40-6.50); %Basophils 0.2 % (0.0-1.0); %Eosinophils 3.6 % (0.0-10.0); %Lymphocytes 15.9 % (28.0-48.0); %Monocytes 12.5 % (0.0-4.0); %Neutrophils 67.9 % (31.0-61.0); Hemoglobin 8.9 g/dL (14.0-18.0); Mean Corpuscular HGB CONC 33.3 g/dL (32.0-36.0); Mean Corpuscular Hemoglobin 30.2 pg (25.0-35.0); Mean Corpuscular Volume 90.6 fL (78.0-98.0); Mean Platelet Volume 6.3 fL (7.4-10.4); Platelet Count 319 thou/uL (130-400); RBC Distribution Width 12.6 % (11.5-14.5); Red Blood Cell (RBC) Count 2.93 mill/uL (4.00-5.20); White Blood Cell (WBC) Count 12.7 thou/uL (4.8-10.8)
[2021-10-16 06:17] LABS: Anion Gap 11 mmol/L (10-20); BUN (Urea Nitrogen) 9 mg/dL (8.9-20.6); Calc. Creatinine Clearance 55 mL/min (70-130); Calcium 8.8 mg/dL (7.8-10.44); Carbon Dioxide 29 mmol/L (22-29); Chloride 102 mmol/L (98-107); Glucose 83 mg/dL (70-105); Magnesium 2.2 mg/dL (1.7-2.2); Phosphorus 3.4 mg/dL (2.3-4.7); Potassium 3.7 mmol/L (3.5-5.1); Sodium 138 mmol/L (136-145)
[2021-10-16] MEDS: Ascorbic Acid 500 mg Chewable Tablet PO SCH ×2 (08:37→20:38)
[2021-10-16] MEDS: Ferrous Sulfate 325 MG TAB PO SCH ×2 (08:37→17:25)
[2021-10-16] MEDS: Gabapentin 300 MG CAP PO SCH ×3 (08:38→20:37)
[2021-10-16] MEDS: Senokot S 8.6-50 MG TAB PO SCH ×2 (08:39→20:37)
[2021-10-16] MEDS: Polyethylene Glycol 3350 17 GM Packet PO SCH (08:39)
[2021-10-17] MEDS: Acetaminophen/Codeine 30-300mg Tablet PO SCH ×4 (00:09→17:28)
[2021-10-17] MEDS: cloNIDine 0.1 MG TAB PO SCH ×5 (00:10→23:45)
[2021-10-17] MEDS: Acetaminophen 325 MG TAB PO SCH ×4 (00:10→17:30)
[2021-10-17 05:17] LABS: #Eosinphils 0.4 thou/uL (0.0-0.7); #Monocytes 1.3 thou/uL (0.11-0.59); #Neutrophils 9.3 thou/uL (1.40-6.50); %Basophils 0.2 % (0.0-1.0); %Eosinophils 3.4 % (0.0-10.0); %Lymphocytes 15.2 % (28.0-48.0); %Monocytes 10.2 % (0.0-4.0); %Neutrophils 71.1 % (31.0-61.0); Hemoglobin 8.6 g/dL (14.0-18.0); Mean Corpuscular HGB CONC 33.7 g/dL (32.0-36.0); Mean Corpuscular Hemoglobin 30.5 pg (25.0-35.0); Mean Corpuscular Volume 90.5 fL (78.0-98.0); Mean Platelet Volume 6.3 fL (7.4-10.4); Platelet Count 389 thou/uL (130-400); RBC Distribution Width 12.6 % (11.5-14.5); Red Blood Cell (RBC) Count 2.81 mill/uL (4.00-5.20); White Blood Cell (WBC) Count 13.1 thou/uL (4.8-10.8)
[2021-10-17] MEDS: Ferrous Sulfate 325 MG TAB PO SCH ×2 (08:49→17:29)
[2021-10-17] MEDS: Senokot S 8.6-50 MG TAB PO SCH ×2 (08:49→19:45)
[2021-10-17] MEDS: Cyclobenzaprine 10 MG TAB PO PRN ×2 (08:49→19:44)
[2021-10-17] MEDS: Gabapentin 300 MG CAP PO SCH ×3 (08:50→19:44)
[2021-10-17] MEDS: Ascorbic Acid 500 mg Chewable Tablet PO SCH ×2 (08:50→19:44)
[2021-10-17] MEDS: Polyethylene Glycol 3350 17 GM Packet PO SCH (08:50)
[2021-10-17] MEDS ORDERED: Magnesium Citrate 300 ML BOT PO SCH (12:30)
[2021-10-18] MEDS: Acetaminophen 325 MG TAB PO SCH ×5 (00:16→23:36)
[2021-10-18] MEDS: cloNIDine 0.1 MG TAB PO SCH ×5 (00:17→23:35)
[2021-10-18] MEDS: Acetaminophen/Codeine 30-300mg Tablet PO SCH ×5 (00:17→23:35)
[2021-10-18] MEDS ORDERED: Simethicone Chewable 80 MG TAB PO PRN (01:02)
[2021-10-18 06:28] LABS: Hemoglobin 9.1 g/dL (14.0-18.0)
[2021-10-18] MEDS: Gabapentin 300 MG CAP PO SCH ×3 (08:30→20:37)
[2021-10-18] MEDS: Ascorbic Acid 500 mg Chewable Tablet PO SCH ×2 (08:31→20:38)
[2021-10-18] MEDS: Ferrous Sulfate 325 MG TAB PO SCH ×2 (08:31→18:15)
[2021-10-18] MEDS: Polyethylene Glycol 3350 17 GM Packet PO SCH (11:21)
[2021-10-18] MEDS: Senokot S 8.6-50 MG TAB PO SCH ×2 (11:21→20:37)
[2021-10-18] MEDS ORDERED: Fentanyl 100 MCG/2 ML VIAL SLOW IVP PRN (17:34)
[2021-10-18] MEDS ORDERED: Fentanyl 100 MCG/2 ML VIAL ONE (17:36)
[2021-10-18] MEDS ORDERED: Acetaminophen/Codeine 30-300mg Tablet ONE (18:09)
[2021-10-18] MEDS ORDERED: Acetaminophen 325 MG TAB ONE (18:11)
[2021-10-18] MEDS: Fentanyl 100 MCG/2 ML VIAL SLOW IVP PRN ×2 (20:38→23:05)
[2021-10-19] MEDS: Cyclobenzaprine 10 MG TAB PO PRN ×3 (02:15→14:24)
[2021-10-19] MEDS: Zolpidem Tartrate 5 MG TAB PO PRN (02:15)
[2021-10-19] MEDS: Fentanyl 100 MCG/2 ML VIAL SLOW IVP PRN ×3 (02:15→08:15)
[2021-10-19] MEDS: Acetaminophen/Codeine 30-300mg Tablet PO SCH ×2 (05:38→13:01)
[2021-10-19] MEDS: Acetaminophen 325 MG TAB PO SCH ×2 (05:38→13:03)
[2021-10-19] MEDS: cloNIDine 0.1 MG TAB PO SCH ×4 (05:39→23:16)
[2021-10-19 06:30] LABS: Hemoglobin 9.3 g/dL (14.0-18.0)
[2021-10-19 06:51] LABS: Anion Gap 12 mmol/L (10-20); BUN (Urea Nitrogen) 18 mg/dL (8.9-20.6); Calc. Creatinine Clearance 66 mL/min (70-130); Calcium 9.2 mg/dL (7.8-10.44); Carbon Dioxide 24 mmol/L (22-29); Chloride 103 mmol/L (98-107); Glucose 86 mg/dL (70-105); Phosphorus 3.8 mg/dL (2.3-4.7); Potassium 4.3 mmol/L (3.5-5.1); Sodium 135 mmol/L (136-145)
[2021-10-19] MEDS: Gabapentin 300 MG CAP PO SCH ×3 (08:14→20:37)
[2021-10-19] MEDS: Ferrous Sulfate 325 MG TAB PO SCH ×2 (08:14→18:55)
[2021-10-19] MEDS: Ascorbic Acid 500 mg Chewable Tablet PO SCH ×2 (08:15→20:37)
[2021-10-19] MEDS: Polyethylene Glycol 3350 17 GM Packet PO SCH (08:15)
[2021-10-19] MEDS: Senokot S 8.6-50 MG TAB PO SCH ×2 (08:15→21:10)
[2021-10-19] MEDS ORDERED: Morphine 4 MG/ML VIAL SLOW IVP SCH (10:45)
[2021-10-19] MEDS ORDERED: Morphine 4 MG/ML VIAL SLOW IVP PRN (10:45)
[2021-10-19] MEDS ORDERED: Acetaminophen/Codeine 30-300mg Tablet PO SCH (16:15)
[2021-10-19] MEDS ORDERED: Communication Order-Pharmacy FS SCH (16:15)
[2021-10-19] MEDS: HYDROmorphone 10 mg/100 ml CADD IVPB PRN (17:01)
[2021-10-19] MEDS: Acetaminophen 500 MG TAB PO SCH ×2 (18:55→23:57)
[2021-10-20 06:52] LABS: Hemoglobin 8.5 g/dL (14.0-18.0)
[2021-10-20] MEDS: Acetaminophen 500 MG TAB PO SCH ×4 (06:55→18:49)
[2021-10-20] MEDS: cloNIDine 0.1 MG TAB PO SCH ×3 (06:56→17:23)
[2021-10-20 07:24] LABS: BUN (Urea Nitrogen) 13 mg/dL (8.9-20.6); Calc. Creatinine Clearance 66 mL/min (70-130); Carbon Dioxide 24 mmol/L (22-29); Glucose 92 mg/dL (70-105); Magnesium 1.8 mg/dL (1.7-2.2); Phosphorus 3.3 mg/dL (2.3-4.7); Potassium 4.3 mmol/L (3.5-5.1)
[2021-10-20] MEDS: Gabapentin 300 MG CAP PO SCH ×3 (07:56→20:29)
[2021-10-20] MEDS: Ferrous Sulfate 325 MG TAB PO SCH ×2 (07:57→17:23)
[2021-10-20] MEDS: Ascorbic Acid 500 mg Chewable Tablet PO SCH ×2 (07:57→20:29)
[2021-10-20] MEDS: Senokot S 8.6-50 MG TAB PO SCH ×2 (07:58→20:30)
[2021-10-20] MEDS ORDERED: Magnesium 2 GM/50 ML BAG (IN WATER) ONE (09:26)
[2021-10-20] MEDS ORDERED: Magnesium 2 GM/50 ML 2 GM in Premix Bag 1 BAG IVPB SCH (09:45)
[2021-10-20] MEDS ORDERED: PHOS-NAK 1 PKT PACK PO SCH (09:45)
[2021-10-20 09:56] LABS: Chloride 101 mmol/L (98-107); Sodium 133 mmol/L (136-145)
[2021-10-20 10:04] LABS: Anion Gap 12 mmol/L (10-20)
[2021-10-20] MEDS: Polyethylene Glycol 3350 17 GM Packet PO SCH (11:12)
[2021-10-20] MEDS: HYDROmorphone 10 mg/100 ml CADD IVPB PRN (16:19)
[2021-10-20] MEDS ORDERED: Melatonin 3 MG TAB PO PRN (19:30)
[2021-10-21] MEDS: cloNIDine 0.1 MG TAB PO SCH ×4 (01:09→18:14)
[2021-10-21] MEDS: Acetaminophen 500 MG TAB PO SCH ×4 (01:09→18:14)
[2021-10-21 05:50] LABS: #Basophils 0.1 thou/uL (0.0-0.2); #Eosinphils 0.3 thou/uL (0.0-0.7); #Lymphocytes 1.8 thou/uL (1.20-3.40); #Monocytes 1.8 thou/uL (0.11-0.59); #Neutrophils 13.2 thou/uL (1.40-6.50); %Basophils 0.4 % (0.0-1.0); %Eosinophils 1.9 % (0.0-10.0); %Lymphocytes 10.2 % (28.0-48.0); %Monocytes 10.4 % (0.0-4.0); %Neutrophils 77.1 % (31.0-61.0); Hemoglobin 8.1 g/dL (14.0-18.0); Mean Corpuscular Hemoglobin 31.1 pg (25.0-35.0); Mean Corpuscular Volume 91.3 fL (78.0-98.0); Mean Platelet Volume 5.9 fL (7.4-10.4); Platelet Count 560 thou/uL (130-400); RBC Distribution Width 13.3 % (11.5-14.5); Red Blood Cell (RBC) Count 2.59 mill/uL (4.00-5.20); White Blood Cell (WBC) Count 17.1 thou/uL (4.8-10.8)
[2021-10-21 06:20] LABS: Anion Gap 13 mmol/L (10-20); BUN (Urea Nitrogen) 11 mg/dL (8.9-20.6); Calc. Creatinine Clearance 69 mL/min (70-130); Calcium 8.8 mg/dL (7.8-10.44); Carbon Dioxide 26 mmol/L (22-29); Chloride 100 mmol/L (98-107); Glucose 90 mg/dL (70-105); Magnesium 1.9 mg/dL (1.7-2.2); Potassium 4.1 mmol/L (3.5-5.1); Sodium 135 mmol/L (136-145)
[2021-10-21] MEDS: Ferrous Sulfate 325 MG TAB PO SCH ×2 (09:36→18:13)
[2021-10-21] MEDS: Gabapentin 300 MG CAP PO SCH ×3 (09:36→19:56)
[2021-10-21] MEDS: Ascorbic Acid 500 mg Chewable Tablet PO SCH ×2 (09:36→19:56)
[2021-10-21] MEDS: Senokot S 8.6-50 MG TAB PO SCH ×2 (09:37→19:56)
[2021-10-21] MEDS: Polyethylene Glycol 3350 17 GM Packet PO SCH (09:37)
[2021-10-21 14:29] VITALS: BMI 21.6
[2021-10-21] MEDS: HYDROmorphone 10 mg/100 ml CADD IVPB PRN (18:15)
[2021-10-22] MEDS: Acetaminophen 500 MG TAB PO SCH ×4 (00:45→17:33)
[2021-10-22] MEDS: cloNIDine 0.1 MG TAB PO SCH ×4 (00:45→17:10)
[2021-10-22] MEDS ORDERED: Acetaminophen/Codeine 30-300mg Tablet PO SCH (07:30)
[2021-10-22] MEDS: Polyethylene Glycol 3350 17 GM Packet PO SCH (09:42)
[2021-10-22] MEDS: Ascorbic Acid 500 mg Chewable Tablet PO SCH ×2 (09:43→21:18)
[2021-10-22] MEDS: Senokot S 8.6-50 MG TAB PO SCH ×2 (09:43→21:17)
[2021-10-22] MEDS: Ferrous Sulfate 325 MG TAB PO SCH ×2 (09:43→17:13)
[2021-10-22] MEDS: Gabapentin 300 MG CAP PO SCH ×3 (09:43→21:17)
[2021-10-22] MEDS ORDERED: Morphine 4 MG/ML VIAL SLOW IVP PRN (14:20)
[2021-10-22] MEDS ORDERED: HYDROcodone/Acetaminophen 7.5/325 mg Tablet PO PRN (14:20)
[2021-10-22] MEDS: HYDROcodone/Acetaminophen 7.5/325 mg Tablet PO PRN ×2 (17:10→21:16)
[2021-10-22] MEDS: Acetaminophen/Codeine 30-300mg Tablet PO SCH ×2 (17:34→17:35)
[2021-10-22] MEDS: Docusate 100 MG CAP PO SCH (21:18)
[2021-10-23] MEDS: cloNIDine 0.1 MG TAB PO SCH ×3 (00:28→13:29)
[2021-10-23] MEDS: Acetaminophen 500 MG TAB PO SCH ×3 (00:30→13:26)
[2021-10-23] MEDS: Gabapentin 300 MG CAP PO SCH ×2 (08:23→13:29)
[2021-10-23] MEDS: Docusate 100 MG CAP PO SCH (08:23)
[2021-10-23] MEDS: Polyethylene Glycol 3350 17 GM Packet PO SCH (08:23)
[2021-10-23] MEDS: Ascorbic Acid 500 mg Chewable Tablet PO SCH (08:23)
[2021-10-23] MEDS: Ferrous Sulfate 325 MG TAB PO SCH (08:23)
[2021-10-23] MEDS: Senokot S 8.6-50 MG TAB PO SCH (08:23)
[2021-10-23] MEDS: HYDROcodone/Acetaminophen 7.5/325 mg Tablet PO PRN ×2 (08:26→13:30)
[2021-10-23 13:39] VITALS: BP 119/77; TEMP 97.9
== END 2021-10-23 16:05 | disposition home or self-care (01) | DRG 663 ==
LOC: ERS 03:37 → ERHOLD 04:46 → SURG B 13:24 → EEVIPCON 16:52 → OBSVTOIN 16:52
PROVIDERS: ADMIT Specialist; ATTEND Specialist
PROC: 0TCB0ZZ Extirpation of Matter from Bladder, Open Approach (ICD-10-PCS; principal; 2021-10-13)
PROC: 0TCB8ZZ Extirpation of Matter from Bladder, Via Natural or Artificial Opening Endoscopic (ICD-10-PCS; 2021-10-13)
PROC: 30233N1 Transfusion of Nonautologous Red Blood Cells into Peripheral Vein, Percutaneous Approach (ICD-10-PCS; 2021-10-14)
PROC: 04VA3DZ Restriction of Left Renal Artery with Intraluminal Device, Percutaneous Approach (ICD-10-PCS; 2021-10-18)
PROC: B40 Imaging, Lower Arteries, Plain Radiography (ICD-10-PCS; 2021-10-18)
DX: S37.052A Moderate laceration of left kidney, initial encounter (principal); D62 Acute posthemorrhagic anemia; E87.1 Hypo-osmolality and hyponatremia; N13.30 Unspecified hydronephrosis; N17.9 Acute kidney failure, unspecified; R31.0 Gross hematuria; E86.0 Dehydration; I72.2 Aneurysm of renal artery; R33.9 Retention of urine, unspecified; E83.42 Hypomagnesemia; Y09 Assault by unspecified means; N32.0 Bladder-neck obstruction; Z88.2 Allergy status to sulfonamides
CPT/HCPCS: 36245; 36251; 36415; 36430; 37244; 74174; 74178; 74420; 80048; 80053; 81003; 81015; 83735; 84100; 85007; 85014; 85018; 85025; 85027; 85610; 85730; 86850; 86900; 86901; 88304; 93970; 96374; 96375; C1889; J0690; J1170; J2270; J2370; J2405; J2704; J3010; J3475; J7030; J7050; P9016; Q9961-U8

== ENCOUNTER 2021-10-26 08:44 | Outpatient (CLI) | payer BC | END 2021-10-26 08:45 | disposition home or self-care (01) | LOC: RAD 08:44 | PROVIDERS: ATTEND Urology | DX: R31.9 Hematuria, unspecified (principal); N32.89 Other specified disorders of bladder; Z96.0 Presence of urogenital implants | CPT/HCPCS: 51600; 74430 ==